=== PATIENT | female | born 1975 | race Caucasian/White ===

== ENCOUNTER 2016-09-30 20:33 | Emergency (ER) | payer OTHER ==
[~2016-09-30 20:33] MED LIST: CALCIUM MAGNESI1 TAB PO; FIRST-PROG200 MG/SUP VG; GLUCOPHAGE500 MG PO; MACROBID PO; MOTRIN800 MG PO; NO HOME MEDICATION XX; NO MEDS; NORCO 5/325 TAB1 TAB PO; PRENATAL1 TAB; PRENATAL1 TAB PO; PROGESTERONE50 MG/ML IM; TAMIFLU75 MG; XANAX0.25 M1 PO; XANAX0.25 MG PO; ZOFRAN ODT4 MG/UDTAB PO
[2016-09-30] MEDS ORDERED: PRENATAL COMPL1 EACH PO (21:27)
== END 2016-09-30 22:21 ==
LOC: EDMED 20:33
DX: O9A.211 Injury, poisoning and certain other consequences of external causes complicating pregnancy, first trimester (principal); S39.91XA Unspecified injury of abdomen, initial encounter; Z3A.01 Less than 8 weeks gestation of pregnancy; W50.0XXA Accidental hit or strike by another person, initial encounter

== ENCOUNTER 2016-11-06 09:55 | Day surgery (SDC) | payer OTHER ==
[~2016-11-06 09:55] MED LIST changes: +PRENATAL COMPL1 EACH PO
[2016-11-06 10:57] LABS: BASO % 0.1 % (0-2); EOS % 0.4 % (0-7); HCT-HEMATOCRIT 34.9 % (34.0-49.0); IMMATURE GRANULOCYTES ABSOLUTE 0.02 tho/cmm (0-0.03); IMMATURE GRANULOCYTES PERCENT 0.3 % (0-0.3); LYMPH % 20.2 % (20-45); LYMPH ABSOLUTE COUNT 1.5 tho/cmm (0.8-4.5); MCH (MEAN CORPUSCULAR HGB) 28.4 pg (28.0-32.0); MCHC MEAN CORPUSCULAR HGB CONC 34.4 % (32.0-36.0); MCV (MEAN CELL VOLUME) 82.5 fl (82.0-96.0); MEAN PLATELET VOLUME 11.1 cmc (9.4-12.4); MONO % 4.1 % (0-12); MONOCYTE ABSOLUTE COUNT 0.3 tho/cmm (0.0-1.2); NEUTROPHIL ABSOLUTE COUNT 5.5 tho/cmm (1.6-8.0); NEUTROPHIL-AUTOMATED 5.5 tho/cmm (1.6-8.0); NEUTROPHILS % 74.9 % (40-80); PLATELET COUNT 155 tho/cmm (150-450); RED BLOOD COUNT 4.23 mil/cmm (4.00-5.20); RED CELL DISTRIBUTION WIDTH 13.1 % (12.4-16.4); WHITE BLOOD COUNT 7.4 tho/cmm (4.0-10.0)
== END 2016-11-06 13:15 ==
LOC: SHSC 09:55 → PACU 12:48 → SHSC 13:00
PROVIDERS: Obstetrics & Gynecology Maternal & Fetal Medicine
PROC: 10D17ZZ Extraction of Products of Conception, Retained, Via Natural or Artificial Opening (ICD-10-PCS; principal; 2016-11-06)
DX: O02.1 Missed abortion (principal); E78.5 Hyperlipidemia, unspecified; F41.0 Panic disorder [episodic paroxysmal anxiety]; Z88.8 Allergy status to other drugs, medicaments and biological substances; Z98.890 Other specified postprocedural states
CPT/HCPCS: J0690; J2210